=== PATIENT | male | born 1975 | race Caucasian/White ===

== ENCOUNTER → 2017-11-22 | Outpatient (CLI) | payer OTHER ==
[2017-11-22 12:21] LABS: ALT 57 U/L (21-72); AST 26 U/L (17-59)
== END | disposition home or self-care (01) ==
LOC: LABWHC1 11:45
PROVIDERS: ATTEND Podiatrist Foot & Ankle Surgery
DX: K74.60 Unspecified cirrhosis of liver (principal)
CPT/HCPCS: 36415; 84450; 84460

== ENCOUNTER → 2020-11-29 | Outpatient (CLI) | payer BC ==
--- NOTE | 2020-11-30 15:20 | US ---
EXAMINATION TYPE: US abdomen complete DATE OF EXAM: 11/29/2020 COMPARISON: US 02/19/13 CLINICAL HISTORY: R74.01 Elevated liver enzymes. EXAM MEASUREMENTS: Liver Length: 19.6 cm Gallbladder Wall: 0.2 cm CBD: 0.5 cm Spleen: 14.7 cm this is suggestive of mild splenomegaly. Right Kidney: 11.9 x 6.8 x 5.4 cm Left Kidney: 10.6 x 5.9 x 5.4 cm Pancreas: Tail obscured by overlying bowel gas Liver: Increased parenchymal attenuation, hepatomegaly. These are suggestive of diffuse fatty infilt ration with 1.5 cm focal sparing near GB Gallbladder: No stones seen Evidence for sonographic Barreto's sign: No CBD: wnl Spleen: Splenomegaly Right Kidney: No hydronephrosis or masses seen Left Kidney: No hydronephrosis or masses seen Upper IVC: wnl Abd Aorta: wnl The pancreatic tail is not visualized due to overlying bowel gas. 2. Mild splenomegaly with the spleen measuring 14.7 cm. 3. Hepatomegaly and diffuse fatty infiltration of liver with 1.5 cm focal fatty sparing near the gall bladder.
== END | disposition home or self-care (01) ==
LOC: RADUSWWP 06:54
PROVIDERS: ATTEND Family Medicine
DX: K76.0 Fatty (change of) liver, not elsewhere classified (principal); R16.2 Hepatomegaly with splenomegaly, not elsewhere classified
CPT/HCPCS: 76700

== ENCOUNTER → 2021-07-06 | Outpatient (CLI) | payer BC ==
[2021-07-07 02:10] LABS: ALT 69 U/L (10-49); AST 39 U/L (14-35); Albumin 4.5 g/dL (3.8-4.9); Albumin/Globulin Ratio 1.96 (1.60-3.17); Alkaline Phosphatase 76 U/L (41-126); Bilirubin, Conjugated <0.20 mg/dL (0.20-0.40); Globulin 2.3 g/dL (1.6-3.3); Total Protein 6.8 g/dL (6.2-8.2)
== END | disposition home or self-care (01) ==
LOC: LABWHC1 12:47
PROVIDERS: ATTEND Nurse Practitioner
DX: K76.0 Fatty (change of) liver, not elsewhere classified (principal)
CPT/HCPCS: 36415; 80076

== ENCOUNTER → 2022-02-22 | Outpatient (CLI) | payer BC ==
[2022-02-22 23:28] LABS: Hepatitis B Surface Antigen Nonreactive (Nonreactive); Hepatitis C IgG Antibody Nonreactive (Nonreactive)
[2022-02-22 23:38] LABS: % Iron Saturation 22.03 (15.00-50.00); ALT 62 U/L (10-49); AST 29 U/L (14-35); African American GFR (CKD) 99.6 (60.0-200.0); Albumin 4.5 g/dL (3.8-4.9); Albumin/Globulin Ratio 2.12 (1.60-3.17); Alkaline Phosphatase 79 U/L (41-126); BUN/Creat Ratio 15.24 Ratio (12.00-20.00); Bilirubin, Conjugated <0.20 mg/dL (0.20-0.40); Calcium 9.6 mg/dL (8.7-10.3); Carbon Dioxide 28.7 mmol/L (20.0-27.5); Chloride 104 mmol/L (96-109); Globulin 2.1 g/dL (1.6-3.3); Glucose 123 mg/dL (70-110); Iron 81 ug/dL (65-175); Non-African American GFR(CKD) 85.9 (60.0-200.0); Potassium 4.3 mmol/L (3.5-5.5); Sodium 142 mmol/L (135-145); Total Iron Binding Capacity 367 ug/dL (228-460); Total Protein 6.7 g/dL (6.2-8.2)
[2022-02-23 00:59] LABS: Ceruloplasmin 18.2 mg/dL (20.0-60.0)
== END | disposition home or self-care (01) ==
LOC: LABWHC1 16:10
PROVIDERS: ATTEND Internal Medicine Gastroenterology
DX: K76.0 Fatty (change of) liver, not elsewhere classified (principal); R94.5 Abnormal results of liver function studies
CPT/HCPCS: 36415; 80053; 82103; 82248; 82390; 82728; 83540; 83550; 86038; 86039; 86803; 87340